=== PATIENT | female | born 1935 | race Caucasian/White ===

== ENCOUNTER → 2016-09-27 | Outpatient (CLI) | payer MEDICARE, OTHER ==
[~2016-09-27] MED LIST: ALBUPOW26 XX; ALPR0.25; ATOR20TA PO; CHOL20004 PO; FLUO-125 PO; GLUC-149; GLYB5TAB8 PO; LATA0.0015 OP; LEVO250T45 PO; METF-312; METR500T PO; TIOTCAP; [UNRECOGNIZED DRUG - CODE]
== END | disposition home or self-care (01) ==
LOC: RT 10:40
PROVIDERS: ATTEND Internal Medicine
DX: R55 Syncope and collapse (principal)
CPT/HCPCS: 93306

== ENCOUNTER → 2016-10-09 | Outpatient (CLI) | payer MEDICARE, OTHER | END | disposition home or self-care (01) | LOC: XY 12:52 | PROVIDERS: ATTEND Internal Medicine | DX: I65.23 Occlusion and stenosis of bilateral carotid arteries (principal) | CPT/HCPCS: 93886 ==

== ENCOUNTER → 2017-05-02 | Outpatient (CLI) | payer MEDICARE, OTHER ==
[~2017-05-02] MED LIST changes: -METF-312; +METF-370
[2017-05-02 11:26] LABS: Basophils # (auto) 0.1 uL; CONDITION Y; Eosinophils # (auto) 0.1 uL; Eosinophils % (auto) 2.1 % (0.0-7.0); Hematocrit 32.8 % (36.0-46.0); Hemoglobin 10.9 g/dL (12.2-16.2); Lymphocytes # (auto) 0.5 uL; Lymphocytes % (auto) 7.8 % (10.0-50.0); Mean Corpuscular Hemoglobin 31.9 pg (28.0-32.0); Mean Corpuscular Hgb Conc. 33.3 g/dL (32.0-36.0); Mean Corpuscular Volume 95.8 fL (80.0-100.0); Mean Platelet Volume 9.1 fL (7.4-10.4); Monocytes # (auto) 0.4 uL; Monocytes % (auto) 6.7 % (0.0-12.0); Neutrophils # (auto) 5.3 uL; Neutrophils % (auto) 82.4 % (37.0-80.0); Platelet Count (auto) 153 10^3/uL (140-450); White Blood Cell 6.5 10^3/uL (4.4-10.8)
[2017-05-02 11:39] LABS: Urine Bilirubin Negative (Negative); Urine Blood Negative /uL (Negative); Urine Color Yellow (Yellow); Urine Glucose Normal (Normal); Urine Ketone Negative (Negative); Urine Mucus FEW (None Seen); Urine Nitrite Negative (Negative); Urine RBC 4 /hpf (0 - 4); Urine Squamous Epithelial Cell FEW /hpf (<5); Urine Urobilinogen Normal (Negative); Urine pH 5.5 (5.0-8.0)
[2017-05-02 11:52] LABS: Albumin 3.7 g/dL (3.4-5.0); BUN/Creatinine Ratio 16.9; Bilirubin, Total 0.4 mg/dL (0.2-1.0); Total Protein 7.3 g/dL (6.4-8.2)
== END | disposition home or self-care (01) ==
LOC: LAB 11:04
PROVIDERS: ATTEND Internal Medicine
DX: I10 Essential (primary) hypertension (principal); E78.5 Hyperlipidemia, unspecified; E55.9 Vitamin D deficiency, unspecified; R73.09 Other abnormal glucose
CPT/HCPCS: 36415; 80053; 80061; 81001; 82043; 82306; 83036; 84443; 85025

== ENCOUNTER 2017-06-21 12:10 | Emergency (ER) | payer MEDICARE, OTHER ==
[~2017-06-21] VITALS: Ht 167.6 cm; Wt 45.4 kg
[2017-06-21 13:06] LABS: Basophils # (auto) 0 uL; Basophils % (auto) 0.7 % (0.0-2.0); Eosinophils # (auto) 0.1 uL; Eosinophils % (auto) 2.3 % (0.0-7.0); Hematocrit 30.4 % (36.0-46.0); Hemoglobin 9.9 g/dL (12.2-16.2); Lymphocytes # (auto) 0.3 uL; Mean Corpuscular Hemoglobin 31.4 pg (28.0-32.0); Mean Corpuscular Hgb Conc. 32.7 g/dL (32.0-36.0); Mean Corpuscular Volume 95.8 fL (80.0-100.0); Mean Platelet Volume 9.3 fL (6.9-10.8); Monocytes # (auto) 0.5 uL; Monocytes % (auto) 8.1 % (0.0-12.0); Neutrophils # (auto) 4.7 uL; Neutrophils % (auto) 82.9 % (37.0-80.0); Nucleated Red Blood Cells % 0.1 %; Platelet Count (auto) 53 10^3/uL (140-450); Red Cell Distribution Width 13.3 % (11.8-14.3); White Blood Cell 5.7 10^3/uL (4.4-10.8)
[2017-06-21 13:54] LABS: Albumin 3.3 g/dL (3.4-5.0); BUN/Creatinine Ratio 15.7; Bilirubin, Total 0.3 mg/dL (0.2-1.0); Calcium 8.9 mg/dL (8.5-10.1); Potassium 3.6 mmol/L (3.5-5.1); Total Protein 6.8 g/dL (6.4-8.2)
[2017-06-21 16:09] LABS: INR 0.94 (0.9-1.15); Partial Thromboplastin Time 24.5 sec (22.64-33.71); Prothrombin Time 10.2 sec (9.37-12.3)
[2017-06-21 16:30] VITALS: BP 151/69
== END 2017-06-21 18:53 | disposition home or self-care (01) ==
LOC: ER 12:10
DX: S90.32XA Contusion of left foot, initial encounter (principal); E11.9 Type 2 diabetes mellitus without complications; E78.00 Pure hypercholesterolemia, unspecified; I10 Essential (primary) hypertension; F41.9 Anxiety disorder, unspecified; J44.9 Chronic obstructive pulmonary disease, unspecified; Z88.2 Allergy status to sulfonamides; Z88.1 Allergy status to other antibiotic agents; Z88.8 Allergy status to other drugs, medicaments and biological substances; M19.90 Unspecified osteoarthritis, unspecified site; X58.XXXA Exposure to other specified factors, initial encounter; Y92.89 Other specified places as the place of occurrence of the external cause; Y93.89 Activity, other specified; Y99.8 Other external cause status
CPT/HCPCS: 36415; 73630; 80053; 85025; 85610; 85730

== ENCOUNTER → 2018-02-27 | Outpatient (CLI) | payer MEDICARE, OTHER ==
[~2018-02-27] MED LIST changes: +DONE5TAB31 PO; +GLIP-115 PO; +PIOG15TA25 PO
[2018-02-27 13:24] LABS: Folate (Folic Acid) 14.41 ng/mL (5.38-24)
== END | disposition home or self-care (01) ==
LOC: LAB 12:16
PROVIDERS: ATTEND Psychiatry & Neurology Neurology
DX: G30.9 Alzheimer's disease, unspecified (principal); F03.90 Unspecified dementia, unspecified severity, without behavioral disturbance, psychotic disturbance, mood disturbance, and anxiety; I10 Essential (primary) hypertension; E11.9 Type 2 diabetes mellitus without complications; J44.9 Chronic obstructive pulmonary disease, unspecified
CPT/HCPCS: 36415; 82607; 82746; 84443

== ENCOUNTER 2018-02-28 17:42 | Emergency (ER) | payer MEDICARE, OTHER ==
[~2018-02-28] VITALS: Ht 167.6 cm; Wt 41.3 kg
[~2018-02-28 17:42] MED LIST changes: -DONE5TAB31 PO; -GLIP-115 PO; -PIOG15TA25 PO
[2018-02-28 19:24] LABS: Basophils # (auto) 0 uL; Basophils % (auto) 0.4 % (0.0-2.0); Eosinophils # (auto) 0 uL; Hematocrit 30.9 % (36.0-46.0); Hemoglobin 10.3 g/dL (12.2-16.2); Lymphocytes # (auto) 0.2 uL; Lymphocytes % (auto) 2.6 % (10.0-50.0); Mean Corpuscular Hemoglobin 32.3 pg (28.0-32.0); Mean Corpuscular Hgb Conc. 33.2 g/dL (32.0-36.0); Mean Corpuscular Volume 97.4 fL (80.0-100.0); Monocytes # (auto) 0.3 uL; Monocytes % (auto) 3.2 % (0.0-12.0); Neutrophils # (auto) 7.6 uL; Neutrophils % (auto) 93.8 % (37.0-80.0); Platelet Count (auto) 168 10^3/uL (140-450); Red Blood Cells 3.18 10^6/uL (4.0-5.20); Red Cell Distribution Width 13.4 % (11.8-14.3); White Blood Cell 8.1 10^3/uL (4.4-10.8)
[2018-02-28 19:44] LABS: Albumin 3.5 g/dL (3.4-5.0); BUN/Creatinine Ratio 15.3; Bilirubin, Total 0.2 mg/dL (0.2-1.0); Calcium 8.3 mg/dL (8.5-10.1); Potassium 3.3 mmol/L (3.5-5.1); Total Protein 7.4 g/dL (6.4-8.2)
[2018-02-28] MEDS ORDERED: SODIUM CHLORIDE 0.9% 1,000 ML IVB ONE (20:20)
[2018-02-28] MEDS ORDERED: InsuLIN REG 1unit/0.01ml Soln (100units/ml) IV ONE (20:30)
[2018-02-28 21:04] LABS: Magnesium 1.6 mg/dL (1.6-2.6)
[2018-02-28 21:16] LABS: INR 0.96 (0.9-1.15); Prothrombin Time 10.3 sec (9.27-12.13)
[2018-02-28 21:32] LABS: Urine Bacteria NONE SEEN /hpf (None Seen); Urine Blood 2+ /uL (Negative); Urine Specific Gravity 1.012 (1.001-1.035); Urine WBC 6 /hpf (0 - 5)
[2018-02-28 23:18] VITALS: BP 147/68
== END 2018-02-28 23:22 | disposition home or self-care (01) ==
LOC: ER 17:52
DX: E11.65 Type 2 diabetes mellitus with hyperglycemia (principal); J44.9 Chronic obstructive pulmonary disease, unspecified; E11.9 Type 2 diabetes mellitus without complications; I10 Essential (primary) hypertension; M19.90 Unspecified osteoarthritis, unspecified site; Z90.710 Acquired absence of both cervix and uterus; Z90.49 Acquired absence of other specified parts of digestive tract; Z88.2 Allergy status to sulfonamides; Z79.899 Other long term (current) drug therapy
CPT/HCPCS: 36415; 71045; 80053; 81001; 82150; 82962; 83036; 83690; 83735; 85025; 85610; 85730; 93005; J1815

== ENCOUNTER 2018-03-01 19:07 | Inpatient (IN) | payer MEDICARE, OTHER ==
[~2018-03-01] VITALS: Ht 162.6 cm; Wt 41.8 kg
[2018-03-01 21:51] LABS: Basophils # (auto) 0 uL; Basophils % (auto) 0.2 % (0.0-2.0); Eosinophils # (auto) 0 uL; Hematocrit 27.5 % (36.0-46.0); Hemoglobin 9.1 g/dL (12.2-16.2); Lymphocytes # (auto) 0.1 uL; Lymphocytes % (auto) 0.8 % (10.0-50.0); Mean Corpuscular Hemoglobin 32.1 pg (28.0-32.0); Mean Corpuscular Hgb Conc. 32.9 g/dL (32.0-36.0); Mean Corpuscular Volume 97.5 fL (80.0-100.0); Monocytes # (auto) 0.7 uL; Monocytes % (auto) 5.3 % (0.0-12.0); Neutrophils # (auto) 12.2 uL; Neutrophils % (auto) 93.7 % (37.0-80.0); Platelet Count (auto) 147 10^3/uL (140-450); Red Blood Cells 2.82 10^6/uL (4.0-5.20); Red Cell Distribution Width 13.7 % (11.8-14.3)
[2018-03-01 21:58] LABS: INR 0.97 (0.9-1.15); Partial Thromboplastin Time 25.6 sec (23.78-33.04); Prothrombin Time 10.4 sec (9.27-12.13)
[2018-03-01 22:00] LABS: Alanine Aminotransferase 12 U/L (13-56); Albumin 3.4 g/dL (3.4-5.0); Anion Gap 12 (5-15); Aspartate Aminotransferase 9 U/L (15-37); BUN/Creatinine Ratio 14.2; Blood Urea Nitrogen 32 mg/dL (7-18); Calcium 8.5 mg/dL (8.5-10.1); Carbon Dioxide 21 mmol/L (21-32); Chloride 109 mmol/L (98-107); GFR African American 27 mL/min; GFR Non-African American 22 mL/min; Glucose 367 mg/dL (74-106); Magnesium 1.5 mg/dL (1.6-2.6); Sodium 142 mmol/L (136-145)
[2018-03-01] MEDS ORDERED: ALBUTEROL SULF 2.5 MG/0.5ML(0.5%) NEB SOLN HHN ONE (22:00)
[2018-03-01] MEDS ORDERED: IPRATROPIUM BROM 0.5 MG/2.5ML INH SOL HHN ONE (22:00)
[2018-03-01 22:05] LABS: Alkaline Phosphatase 60 U/L (45-117); Bilirubin, Total 0.3 mg/dL (0.2-1.0); Total Protein 6.8 g/dL (6.4-8.2)
[2018-03-01 22:08] LABS: Potassium 2.8 mmol/L (3.5-5.1)
[2018-03-01] MEDS ORDERED: POTASSIUM CHL 10% (20 MEQ/15ML) 15ml ORAL SOLN PO ONE (22:15)
[2018-03-02] VITALS (7 sets, daily range): BP systolic 119–141; BP diastolic 68–96
[2018-03-02] MEDS ORDERED: ENALAPRILAT 1.25 MG/ML-1ML VIAL IV ONE (01:00)
[2018-03-02] MEDS ORDERED: LORazepam 2MG/ML-1ML VIAL IV PRN (01:45)
[2018-03-02] MEDS ORDERED: ACETAMINOPHEN 500 MG TAB PO PRN (01:45)
[2018-03-02] MEDS ORDERED: NITROGLYCERIN 0.4 MG SL TAB SL PRN (01:45)
[2018-03-02] MEDS ORDERED: DEXTROSE (50%) 50ML SYRG IV PRN (01:45)
[2018-03-02] MEDS ORDERED: HYDROcodone-ACET 5/325MG TAB PO PRN (01:45)
[2018-03-02] MEDS ORDERED: MORPHINE SULFATE 8mg/ml INJ SDV IV PRN (01:45)
[2018-03-02] MEDS ORDERED: ONDANSETRON HCL 4 MG/2 ML VIAL IV PRN (01:45)
[2018-03-02] MEDS ORDERED: POTASSIUM CHL 20 Meq TABLET PO ONE (06:00)
[2018-03-02] MEDS: ACCU-CHEK COMFORT CURVE STRIP VI SCH ×4 (06:46→22:40)
[2018-03-02] MEDS: InsuLIN REG 1unit/0.01ml Soln (100units/ml) SC SCH ×3 (06:57→17:00)
[2018-03-02] MEDS: FUROSEMIDE 40 MG/4 ML VIAL IV SCH (10:00)
[2018-03-02] MEDS ORDERED: DONE5TAB31 PO (10:23)
[2018-03-02] MEDS ORDERED: GLIP-115 PO (10:23)
[2018-03-02] MEDS ORDERED: PIOG15TA25 PO (10:23)
[2018-03-02] MEDS ORDERED: cefTRIAXone 1GM/10ml IVPUSH 10 ML IV ONE (11:30)
[2018-03-02] MEDS ORDERED: MORPHINE SULF INJ 2 MG/ML SYRINGE 1ML IV PRN (11:30)
[2018-03-02 13:11] LABS: Urine Bacteria FEW /hpf (None Seen); Urine Blood TRACE /uL (Negative); Urine Specific Gravity 1.005 (1.001-1.035); Urine WBC 1 /hpf (0 - 5)
[2018-03-02] MEDS: IPRATROPIUM BROM 0.5 MG/2.5ML INH SOL NEB SCH ×3 (13:45→22:35)
[2018-03-02] MEDS ORDERED: LOPERAMIDE HCL 2 MG CAP PO ONE (13:45)
[2018-03-02] MEDS: ALBUTEROL SULF 2.5 MG/0.5ML(0.5%) NEB SOLN NEB SCH ×3 (13:45→22:35)
[2018-03-02] MEDS ORDERED: LATANOPROST 0.005 % OPTH(EYE) SOL 2.5ML EACHEYE SCH (22:00)
[2018-03-02] MEDS ORDERED: InsuLIN REG 1unit/0.01ml Soln (100units/ml) SC SCH (22:00)
[2018-03-02] MEDS ORDERED: DONEPEZIL HYDROCHLORIDE 5 MG TAB PO SCH (22:00)
[2018-03-02] MEDS ORDERED: DILTIAZEM HCL 25 MG/5 ML VIAL IV ONE (23:00)
[2018-03-03] MEDS: ALBUTEROL SULF 2.5 MG/0.5ML(0.5%) NEB SOLN NEB SCH ×5 (02:34→18:48)
[2018-03-03] MEDS: IPRATROPIUM BROM 0.5 MG/2.5ML INH SOL NEB SCH ×5 (02:34→18:48)
[2018-03-03 05:00] VITALS: BP 146/69
[2018-03-03 06:02] LABS: Basophils # (auto) 0.1 uL; Basophils % (auto) 0.7 % (0.0-2.0); Eosinophils # (auto) 0.2 uL; Eosinophils % (auto) 3.3 % (0.0-7.0); Hematocrit 29.3 % (36.0-46.0); Hemoglobin 9.8 g/dL (12.2-16.2); Lymphocytes # (auto) 0.5 uL; Lymphocytes % (auto) 7.1 % (10.0-50.0); Mean Corpuscular Hemoglobin 32.2 pg (28.0-32.0); Mean Corpuscular Hgb Conc. 33.3 g/dL (32.0-36.0); Mean Corpuscular Volume 96.6 fL (80.0-100.0); Monocytes # (auto) 0.9 uL; Monocytes % (auto) 11.6 % (0.0-12.0); Neutrophils # (auto) 5.7 uL; Neutrophils % (auto) 77.3 % (37.0-80.0); Platelet Count (auto) 113 10^3/uL (140-450); Red Blood Cells 3.03 10^6/uL (4.0-5.20); Red Cell Distribution Width 13.6 % (11.8-14.3); White Blood Cell 7.4 10^3/uL (4.4-10.8)
[2018-03-03 06:10] LABS: Calcium 8.9 mg/dL (8.5-10.1); Potassium 3.5 mmol/L (3.5-5.1)
[2018-03-03 06:12] LABS: BUN/Creatinine Ratio 14.4
[2018-03-03] MEDS: ACCU-CHEK COMFORT CURVE STRIP VI SCH ×3 (06:15→17:00)
[2018-03-03] MEDS: InsuLIN REG 1unit/0.01ml Soln (100units/ml) SC SCH ×3 (06:21→17:00)
[2018-03-03 08:00] VITALS: BP 125/59
[2018-03-03] MEDS ORDERED: cefTRIAXone 1GM/10ml IVPUSH 10 ML IV SCH (09:00)
[2018-03-03] MEDS: FUROSEMIDE 40 MG/4 ML VIAL IV SCH (10:39)
[2018-03-03 12:52] VITALS: BP 143/64
[2018-03-03 17:00] VITALS: BP 125/58
[2018-03-03] MEDS ORDERED: SOTALOL HCL 80 MG TAB PO ONE (18:30)
[2018-03-03] MEDS ORDERED: APIXABAN 2.5 MG TAB PO SCH (19:23)
[2018-03-03] MEDS ORDERED: SOTALOL HCL 80 MG TAB PO SCH (22:00)
== END 2018-03-03 20:30 | disposition home or self-care (01) | DRG 291 ==
LOC: EDBD 19:07 → ER 19:12 → TELE 19:13 → TELE-WESTW 03-02 03:05
PROVIDERS: ADMIT Nurse Practitioner Family; ATTEND Family Medicine
DX: I13.0 Hypertensive heart and chronic kidney disease with heart failure and stage 1 through stage 4 chronic kidney disease, or unspecified chronic kidney disease (principal); I50.31 Acute diastolic (congestive) heart failure; J44.1 Chronic obstructive pulmonary disease with (acute) exacerbation; N18.4 Chronic kidney disease, stage 4 (severe); D68.69 Other thrombophilia; I48.91 Unspecified atrial fibrillation; D64.9 Anemia, unspecified; E11.22 Type 2 diabetes mellitus with diabetic chronic kidney disease; E78.5 Hyperlipidemia, unspecified; E87.6 Hypokalemia; F03.90 Unspecified dementia, unspecified severity, without behavioral disturbance, psychotic disturbance, mood disturbance, and anxiety; M19.90 Unspecified osteoarthritis, unspecified site; F41.9 Anxiety disorder, unspecified; Z79.01 Long term (current) use of anticoagulants; Z79.4 Long term (current) use of insulin; Z79.899 Other long term (current) drug therapy; Z83.3 Family history of diabetes mellitus; Z87.891 Personal history of nicotine dependence; Z90.710 Acquired absence of both cervix and uterus; Z99.81 Dependence on supplemental oxygen; Z88.2 Allergy status to sulfonamides; Z90.49 Acquired absence of other specified parts of digestive tract; Z87.440 Personal history of urinary (tract) infections; E11.65 Type 2 diabetes mellitus with hyperglycemia
CPT/HCPCS: 36415; 36600; 71045; 80048; 80053; 81001; 82150; 82607; 82746; 82805; 82962; 83036; 83690; 83735; 83880; 84443; 84484; 85025; 85610; 85730; 87040; 87086; 93005; 93306; 94640; 94761; 96361; 96374; 96375; J1815